=== PATIENT | female | born 1950 | race Caucasian/White ===

== ENCOUNTER → 2020-02-15 13:13 | Outpatient (CLI) | payer MEDICARE, SELFPAY | PROVIDERS: PCP Family Medicine; Visit Provider Specialist | DX: N39.0 Urinary tract infection, site not specified (principal); N95.2 Postmenopausal atrophic vaginitis; Z85.51 Personal history of malignant neoplasm of bladder | CPT/HCPCS: 52000; 81002; 87077; 87086; 87185; 87186; 99213 ==